=== PATIENT | female | born 1965 | race Caucasian/White ===

== ENCOUNTER 2020-12-09 12:41 | Emergency (ER) | payer BC ==
[~2020-12-09] VITALS: Ht 154.9 cm; Wt 63.5 kg
[2020-12-09] MEDS ORDERED: NEXIUM20 MG PO (12:56)
[2020-12-09 14:29] LABS: CREATININE 0.7 mg/dL (0.6-1.0); POTASSIUM 3.7 mmol/L (3.5-5.1)
[2020-12-09] MEDS ORDERED: MEDROLDOSEPACK PO (15:50)
[2020-12-09] MEDS ORDERED: METHOCARBAMOL500 M2 PO (15:50)
[2020-12-09 15:59] VITALS: BP 138/74
== END 2020-12-09 16:00 | disposition home or self-care (01) ==
LOC: ER 12:41
PROVIDERS: Nurse Practitioner Family
DX: M54.2 Cervicalgia (principal)